=== PATIENT | female | born 1945 | race Caucasian/White ===

== ENCOUNTER 2023-03-03 11:49 | Outpatient (REF) | payer MEDICARE, OTHER, SELFPAY | END 2023-03-18 01:00 | LOC: WOUND 11:49 | PROVIDERS: ATTENDING PHYSICIAN Surgery; FAMILY PHYSICIAN Physician Assistant Medical | DX: L97.812 Non-pressure chronic ulcer of other part of right lower leg with fat layer exposed (principal); I87.2 Venous insufficiency (chronic) (peripheral); I73.9 Peripheral vascular disease, unspecified; T81.31XS Disruption of external operation (surgical) wound, not elsewhere classified, sequela; Z79.52 Long term (current) use of systemic steroids; Y83.8 Other surgical procedures as the cause of abnormal reaction of the patient, or of later complication, without mention of misadventure at the time of the procedure | CPT/HCPCS: 11042 ==

== ENCOUNTER → 2023-03-17 13:31 | Outpatient (REF) | payer MEDICARE, OTHER, SELFPAY | LOC: WOUND 13:31 | PROVIDERS: ATTENDING PHYSICIAN Surgery; REFERRING PHYSICIAN Physician Assistant Medical | DX: E11.621 Type 2 diabetes mellitus with foot ulcer (principal); L97.812 Non-pressure chronic ulcer of other part of right lower leg with fat layer exposed; I87.2 Venous insufficiency (chronic) (peripheral); T81.31XS Disruption of external operation (surgical) wound, not elsewhere classified, sequela; Y83.8 Other surgical procedures as the cause of abnormal reaction of the patient, or of later complication, without mention of misadventure at the time of the procedure; E11.51 Type 2 diabetes mellitus with diabetic peripheral angiopathy without gangrene | CPT/HCPCS: 11042; 11045 ==

== ENCOUNTER → 2023-04-13 10:44 | Outpatient (REF) | payer MEDICARE, OTHER, SELFPAY | LOC: WOUND 10:44 | PROVIDERS: ATTENDING PHYSICIAN Surgery; REFERRING PHYSICIAN Physician Assistant Medical | DX: E11.621 Type 2 diabetes mellitus with foot ulcer (principal); L97.812 Non-pressure chronic ulcer of other part of right lower leg with fat layer exposed; I87.2 Venous insufficiency (chronic) (peripheral); E11.51 Type 2 diabetes mellitus with diabetic peripheral angiopathy without gangrene; T81.31XS Disruption of external operation (surgical) wound, not elsewhere classified, sequela; Z79.52 Long term (current) use of systemic steroids; Y83.8 Other surgical procedures as the cause of abnormal reaction of the patient, or of later complication, without mention of misadventure at the time of the procedure | CPT/HCPCS: 11042; 97597 ==

== ENCOUNTER → 2023-05-18 13:44 | Outpatient (REF) | payer MEDICARE, OTHER, SELFPAY | LOC: WOUND 13:44 | PROVIDERS: ATTENDING PHYSICIAN Surgery; REFERRING PHYSICIAN Physician Assistant Medical | DX: L97.512 Non-pressure chronic ulcer of other part of right foot with fat layer exposed (principal); I87.2 Venous insufficiency (chronic) (peripheral); I73.9 Peripheral vascular disease, unspecified; M06.9 Rheumatoid arthritis, unspecified; E11.9 Type 2 diabetes mellitus without complications | CPT/HCPCS: 11042; 97597 ==